=== PATIENT | male | born 1950 | race Caucasian/White ===

== ENCOUNTER 2017-12-13 07:50 | Day surgery (SDC) | payer OTHER ==
[~2017-12-13] VITALS: Ht 175.3 cm; Wt 86.0 kg
[~2017-12-13 07:50] MED LIST: AMLO5 PO; CHLO4 PO; DRON400T PO; ELIQUIS5 MG; ELIQUIS5 MG PO; LISI20; LISI20 PO; METO50 PO; METO50ER PO
[2017-12-13] MEDS ORDERED: DRON400T PO (09:45)
== END 2017-12-13 22:43 | disposition home or self-care (01) ==
LOC: MHTC 07:50
DX: I48.0 Paroxysmal atrial fibrillation (principal); I10 Essential (primary) hypertension; Z87.891 Personal history of nicotine dependence; Z79.02 Long term (current) use of antithrombotics/antiplatelets
CPT/HCPCS: 92960; 93005; 93010; 99152; J2250; J3010; J7030